=== PATIENT | male | born 2000 | race Caucasian/White ===

== ENCOUNTER 2023-08-11 10:35 | Emergency (ER) | payer OTHER ==
[~2023-08-11] VITALS: Ht 177.8 cm; Wt 91.4 kg
[2023-08-11 10:54] VITALS: TEMP 98.5
[2023-08-11] MEDS: ACETAMINOPHEN 500 MG TABLET PO ONE (11:12)
[2023-08-11 12:47] VITALS: BP 125/75; PULSE 68; RESP 16
== END 2023-08-11 12:47 | disposition home or self-care (01) ==
LOC: EMS 10:38
DX: S43.101A Unspecified dislocation of right acromioclavicular joint, initial encounter (principal); W19.XXXA Unspecified fall, initial encounter; Y93.67 Activity, basketball; Y92.89 Other specified places as the place of occurrence of the external cause; Y99.8 Other external cause status
CPT/HCPCS: 99284; 73000-TC; 73030-TC; Z7502; Z7610